=== PATIENT | male | born 1940 | race Caucasian/White ===

== ENCOUNTER 2019-11-09 22:28 | Inpatient (IN) ==
[2019-11-09 23:23] LABS: ALLEN TEST YES; BLOOD TYPE ARTERIAL; HCO3-(ACT) 23.9 mmoll (20.0-26.0); METHB 0.7 % (0.0-1.5); O2(CT) 14.6 mL/dL (15.0-23.0); PCO2(98.6) 28 mmHg (35-45); SAMPLE BLOOD; SAO2 87.4 % (95.0-100.0); THB 12.1 g/dL (11.5-17.4); pH(98.6) 7.49 (7.35-7.45)
[2019-11-09 23:28] LABS: MODALITY CANNULA; O2HB 85.7 % (95.0-99.0); PO2(98.6) 44 mmHg (60-100)
[2019-11-09] MEDS ORDERED: ZOFRAN IV ONE (23:40)
[2019-11-09] MEDS ORDERED: NS 1,000 ML IV ONE (23:40)
[2019-11-09 23:41] LABS: HEMATOCRIT 36.9 % (42.0-52.0); HEMOGLOBIN 12.1 g/dL (14.0-18.0); LYMPH# 0.22 X1000 (1.2-3.4); LYMPH% 12.9 % (20.5-51.1); MCH 29.7 PG (27-31); MCHC 32.8 g/dL (33-37); MCV 90.4 FL (81-99); MONO# 0.02 X1000 (0.11-0.59); MONO% 1.2 % (1.7-9.3); MPV 10.1 FL (7.4-10.4); NEUT# 1.46 X1000 (1.4-6.5); NEUT% 85.9 % (42.2-75.2); PLT 140 X1000 (130-400); RBC 4.08 XMIL (4.7-6.1); RDW 13.9 % (11.5-14.5)
[2019-11-09 23:48] LABS: AGAP 15; ALKALINE PHOSPHATASE 54 U/L (32-122); BUN 16 mg/dL (8-22); CALCIUM 8.2 mg/dL (8.8-10.2); CHLORIDE 98 mmol/L (98-107); CK PROFILE 34 U/L (24-204); COSMO 278; CREATININE 1.1 mg/dL (0.7-1.2); ESTIMATED GFR > 60; GLUCOSE 216 mg/dL (70-104); GOT 15 U/L (10-34); GPT 15 U/L (10-44); POTASSIUM 4.3 mmol/L (3.5-5.1); SODIUM 135 mmol/L (136-145); TCO2 22 mmol/L (25-35); TOTAL BILIRUBIN 1.06 mg/dL (0.20-1.00)
[2019-11-10 01:11] LABS: ALLEN TEST YES; BE -1.2 mmoll (-3.0-3.0); BLOOD TYPE ARTERIAL; HCO3-(ACT) 23.9 mmoll (20.0-26.0); METHB 0.4 % (0.0-1.5); MODALITY PRB; O2(CT) 14.3 mL/dL (15.0-23.0); O2HB 93.7 % (95.0-99.0); PCO2(98.6) 30 mmHg (35-45); PO2(98.6) 66 mmHg (60-100); SAMPLE BLOOD; SAO2 94.9 % (95.0-100.0); THB 10.8 g/dL (11.5-17.4); pH(98.6) 7.47 (7.35-7.45)
[2019-11-10] MEDS ORDERED: VANCOMYCIN 1 GM/NS 1 GM/250 ML IVPB IV ONE ×2 (01:39→01:44)
[2019-11-10] MEDS ORDERED: MAXIPIME 2 GM/NS 2 GM/100 ML IVPB IV ONE (01:43)
[2019-11-10] MEDS ORDERED: DUONEB (A & A) INH ONE ×2 (01:44→01:47)
[2019-11-10] MEDS ORDERED: NS 1,000 ML IV ONE (01:44)
[2019-11-10] MEDS ORDERED: SOLU-MEDROL IV ONE (01:45)
--- NOTE | 2019-11-10 01:50 | PROVIDER DOCUMENTATION ---
This chart was entered by Lizeth Kohler Scribe, acting as scribe for Reinier Domínguez MD. HPI-General Adult - General Chief Complaint: Nausea/Vomiting Stated Complaint: n/v Time Seen by Provider: 11/09/19 22:35 Source: patient, EMS Allergies/Adverse Reactions: Patient Allergies Allergy/AdvReac Type Severity Reaction Status Date / Time No Known Allergies Allergy Verified 09/21/19 10:34 Home Medications: Home Medication List Medication Instructions Recorded Confirmed Last Taken Type ATORVAstatin [Lipitor] 40 mg PO DAILY 09/19/19 09/21/19 09/20/19 History Clopidogrel Bisulfate [Plavix] 75 mg PO DAILY 09/19/19 09/21/19 09/17/19 History Hydrocodone/Acetaminophen [[place] 1 ea PO PRN PRN 09/19/19 09/21/19 09/20/19 History 5-325 Tablet] Metoprolol [Lopressor] 25 mg PO HS 09/19/19 09/21/19 09/20/19 21:00 History Polyethylene Glycol 3350 [Miralax] 17 gm PO DAILY 09/19/19 09/21/19 09/20/19 History - History of Present Illness -Gen Adult Nature of Presenting Problems: Patient is a 79 y/o male presenting to the ED today c/o nausea and dry heaving and malaise, no vomiting. Had sob today without chest pain. Patient is current undergoing chemotherapy and radiation treatment for lung cancer with bone metastasis. Patient was scheduled to have radiation today but was unable to due to machine malfunction. EMS reports upon arrival, patient's O2 sat was in the low 80s. EMS gave patient a nebulizer treatment and put him on a nonrebreather and his Sat improved to the upper 80s. Patient uses 3 L of O2 at home. Patient was in the ER 3 days ago and reports being given IV fluids for dehydration. Patient denies all other signs/symptoms. Patient takes Plavix. Patient reports he stopped smoking approximately 5-6 years ago. Associated Symptoms: reports: malaise, nausea, shortness of breath, vomiting Similar Symptoms Previously?: Yes Recently seen or treated by another doctor?: Yes (seen 11/05 in ER here for similar symptoms) Review of Systems - Adult - REVIEW OF SYSTEMS - ADULT Constitutional: denies: chills, fever Eyes: reports: no symptoms reported Ears, Nose, Mouth & Throat: reports: no symptoms reported Cardiovascular: denies: chest pain Respiratory: reports: shortness of breath. denies: cough Gastrointestinal: reports: nausea, vomiting. denies: abdominal pain, diarrhea Genitourinary: reports: no symptoms reported Musculoskeletal: reports: no symptoms reported Integumentary: reports: no symptoms reported Neurological: reports: no symptoms reported Psychiatric: reports: no symptoms reported Endocrine: reports: no symptoms reported Hematologic/Lymphatic: reports: no symptoms reported Allergic/Immunologic: reports: no symptoms reported All Other Systems: Reviewed and Negative Past History - Adult - PAST MEDICAL HISTORY-ADULT Review of Records: reports: Old Records Reviewed, Nursing Assessment Review, Medications Reviewed, Social history reviewed & non-contributory. Respiratory: reports: cancer Physical Exam-General - PHYSICAL EXAM-ADULT Initial Vital Signs Reviewed: Yes - CONSTITUTIONAL General Appearance: alert, moderate distress, thin - EYES Eyes: PERRL/EOMI, pink conjunctivae - HEAD, EARS, NOSE, MOUTH & THROAT HENMT: normocephalic/atraumatic, moist mucous membranes - NECK Neck: full range of motion, normal inspection - RESPIRATORY Respiratory: lungs clear, no accessory muscle use, respiratory distress, wheezing - CARDIOVASCULAR Cardiovascular: regular rate, rhythm, no edema - GASTROINTESTINAL (ABDOMEN) Abdominal Exam: non tender, soft - LYMPHATIC Lymphatic: no adenopathy - MUSCULOSKELETAL Back Exam: normal inspection Extremity: normal range of motion, normal gait, normal inspection, no pedal edema - SKIN Integumentary: normal color, normal turgor, warm/dry - NEUROLOGIC Neurologic: grossly normal, no motor/sensory deficits - PSYCHIATRIC Psych/Mental Status: normal mood/affect, normal thought content, normal thought process Progress - PLAN OF CARE/RESULTS Result Diagrams: 11/09/19 23:06 11/09/19 23:06 - REASSESSMENT Reassessment #1 Time Reassessed: 01:00 Status: improving (on non rebreather, sob improving. Patient is hypotensive , tarchycardic, still tachypneic) Reassessment #2 Time Reassessed: 01:30 Status: unchanged (No new sxs. receiving IVF. Discussed CT findings and the need for admission with pt and family. They agree with plan.) - CT/MRI 1 CT Study: Angiogram Impression: See EMR Report (No pulmonary emboli, bilateral lower lobe dense infiltrates, right > left, progressed vs. prior, chronic emphysematous and fibrotic disease, moderate right pleural effusion, progressed) - CONSULTS/PCP/HOSPITALIST Notification #1 *Consult/PCP/Hospitalist*: Dr. Oneal Time Discussed: 01:45 Consult Disposition: Admit (accepts admission) Departure - Departure Date of Disposition Decision: 11/10/19 Time of Disposition Decision: 01:40 DIAGNOSIS: SOB (shortness of breath), Pulmonary infiltrate, Pleural effusion Respiratory failure Qualifiers: Chronicity: acute Respiratory failure complication: hypoxia Qualified Code(s): J96.01 - Acute respiratory failure with hypoxia Disposition: ADMITTED INPATIENT 09 Certified Medical Emergency: Emergent Condition: Critical Referrals and Follow-Ups: None,PCP [Primary Care Provider] - - Critical Care Note This patient required my direct & personal management of CC.: Yes Total Time (mins): 35 Critical Care Statement: This patient required my direct personal management to treat or rule out processes, the absence of which, could potentiallly result in sudden, clinically significant life or limb threatening deterioration. Attestation - Physician/ MIGUEL Attestation Patient care was provided by Advanced Practice Provider:: No The physician spent face to face time with patient:: Yes Advanced Practice Provider documentation review:: Supervising physician onsite and consulted in the evaluation and care of this patient. The physician did have a face to face encounter with the patient. This chart was documented by the indicated scribe, (Lizeth Kohler Scribe) and accurately reflects the services I performed and decisions made by me, Reinier Domínguez MD, as attested by the provider's signature.
--- NOTE | 2019-11-10 02:38 | HISTORY AND PHYSICAL ---
PRIMARY CARE PROVIDER: Dr. Mckeon. REASON FOR ADMISSION: Two-day history of worsening shortness of breath. HISTORY OF PRESENT ILLNESS: Mr. Luis Felipe Owens is a 79-year-old white male with past medical history of lung cancer, status post right lobectomy. He is currently undergoing chemotherapy weekly and radiation therapy daily for the last several weeks. He comes in today complaining of worsening shortness of breath for the last 2 days, with simultaneous cough productive of greenish sputum. He denies any subjective fever or chills, but his states he is just feeling hot. The patient denies any chest pain or any anginal-type symptoms. He denies any hemoptysis, leg swelling or extremity redness or pain. The patient denies any contact with anybody with respiratory illnesses. He denies any GI or complaints except for constipation. He does admit that his appetite has been diminished and he has lost some weight subjectively. No genitourinary complaints. No focal neurological complaints. On arrival to the ER, on 4 L which he uses at home, his O2 saturations were in the low 80s. He is currently on 100% nonrebreather and O2 saturations are just in the low 90s. He says he feels better since using the 100% face mask. REVIEW OF SYSTEMS: Twelve-system review was done. Positive findings per HPI. ALLERGIES: No known allergies. MEDICATIONS: Home medications have not been officially reconciled, but it is mentioned that he is on Eliquis. PAST SURGICAL HISTORY: Notable for abdominal aortic aneurysm repair, right lobectomy. FAMILY HISTORY: The patient was adopted. SOCIAL HISTORY: He stopped smoking over 6 years ago. No alcohol use or drug use. , lives with . LABORATORY DATA: White count is 1700, hemoglobin and hematocrit 12 and 36, platelets 140,000, with 86% neutrophils. Sodium is 135, BUN 16, creatinine 1.1, glucose 212, calcium 8.2, total bilirubin 1. Troponin is 28. ProBNP 565. Lactate is pending. Blood gas, and this was on FiO2 of 70%: PH is 7.47, pCO2 is 30, pO2 is 66, O2 saturation is 93%. DIAGNOSTIC DATA: CTA was done and showed bilateral infiltrates in both lungs, left greater than right; also has evidence of COPD. PHYSICAL EXAMINATION: GENERAL: Chronically ill, emaciated, elderly white male who is in mild respiratory distress. VITAL SIGNS: He is slightly tachypneic at a rate of 24. His blood pressure on admission was initially 92/53, heart rate 117, temperature is 100.3 degrees. O2 saturation initially was 86% on 6 L. HEENT: Head is normocephalic, atraumatic. Eyes: SHELLY, EOMI. He is anicteric and mildly pale. ENT: Oropharynx exam is grossly normal. No central cyanosis noted. NECK: Supple. No JVD or carotid bruit. No thyromegaly. CHEST: Decreased air entry in both lung brantley with inspiratory wheezes on the right and possible basilar bronchial breath sounds on the right and left. CARDIOVASCULAR: First and second heart sounds are heard but distant. No murmurs appreciated. Rate is regular. ABDOMEN: Soft. No focal areas of tenderness. No mass or organomegaly appreciated. Bowel sounds are hypoactive. The patient has a ventral hernia which is reducible. RECTAL: Exam is deferred. EXTREMITIES: The patient has slightly diminished pulse volume but they are symmetrical and regular. No edema, clubbing or peripheral cyanosis. NEUROLOGIC: No gross focal deficits. No tremors. SKIN: Intact. No breakdown or erythema. MUSCULOSKELETAL: Exam is grossly normal. ASSESSMENT: 1. Sepsis. 2/2 pneumonia. 2. Bilateral pneumonia. 3. Chronic obstructive pulmonary disease. 4. Lung cancer. 5. Hypertension. 6. Hyperlipidemia. PLAN: The patient will be started on Maxipime to cover for pseudomonas, being that he has some degree of neutropenia. We will also expand coverage with vancomycin for gram- positive. We will also institute crystalloid support with normal saline. At this point in time lactate is pending, and further crystalloid administration will be determined by lactate levels. Blood cultures have been drawn and need to be followed. DuoNeb will be started and short course of steroids in the meantime. Medication reconciliation needs to be reviewed by rounding team. The patient does have hyperglycemia, and an A1c will be appropriate to rule out the possibility of underlying diabetes. Consult Dr. Marcelino for further input. If the patient is diabetic, we will recommend sliding scale. cc: MD Daniel Garza MD Naveen T. Lobo, MD [facility]PIT[facility]erry
[2019-11-10] MEDS ORDERED: VANCOMYCIN IV PER PHARMACY MISC SCH (04:14)
[2019-11-10] MEDS: NS 1,000 ML IV SCH ×3 (04:42→11:32)
[2019-11-10] MEDS ORDERED: VANCOMYCIN 500 MG in NS 150 ML IV ONE (05:00)
[2019-11-10] MEDS: DUONEB (A & A) INH SCH ×4 (05:18→22:45)
[2019-11-10 07:03] LABS: HEMOGLOBIN A1C 5.8 % (4.8-6.0)
--- NOTE | 2019-11-10 07:49 | Diag Imaging Result Doc PS360 ---
EXAM: CT ANGIOGRM PULMONARY ARTERIES 11/09/2019 HISTORY: dyspnea, hypoxia TECHNIQUE: This exam was performed using automated exposure control, adjustment of mA or kV according to patient size, and/or use of iterative reconstruction technique. COMMENT: 3-D MIPS were performed. The current study is compared with the examination of 08/20/2019. There are no filling defects in the pulmonary arteries. There are atherosclerotic changes in the thoracic aorta without evidence of dissection. The descending thoracic aorta is slightly distended to 3.5 cm which has not changed significantly since the previous study. There are bilateral pleural effusions with some suggestion of loculation on the right. The volume of fluid is slightly greater than on the previous study. There is somewhat enlarged precarinal node which measures up to 2.2 cm in long axis. This has probably not changed significantly since the previous study. The regional skeleton is stable in appearance. There are multiple cysts in the kidneys. The gallbladder is somewhat distended. There are no apparent stones. There is severe COPD. There is opacification of both lower lobes particularly the right lower lobe. This is much worse than on the previous study. There is also some opacification of the dependent portion of the lingula which is also worse than on the previous study. IMPRESSION: Pulmonary edema and/or pneumonia with worsened right pleural effusion. No evidence of pulmonary emboli. Electronically signed by Fredy Nicholson 11/10/2019 7:47 AM
[2019-11-10] MEDS: PREDNISONE PO SCH (08:02)
[2019-11-10 11:32] LABS: URINE SOURCE CLEAN CATCH
[2019-11-10 11:46] LABS: BILIRUBIN URINE NEGATIVE (NEGATIVE); BLOOD URINE TRACE (NEGATIVE); COLOR YELLOW; GLUCOSE URINE TRACE mg/dL (NEGATIVE); KETONE URINE NEGATIVE (NEGATIVE); LEUKOCYTES URINE NEGATIVE (NEGATIVE); NITRITE URINE NEGATIVE (NEGATIVE); PH URINE 6.5; PROTEIN URINE TRACE mg/dL (NEGATIVE); TURBIDITY URINE CLEAR (CLEAR); UR EPITHELIAL CELLS <10 /HPF (<10); URINE BACTERIA NEGATIVE /HPF; URINE RBC <10 /HPF (<10); URINE WBC <10 /HPF (<10); UROBILINOGEN URINE NORMAL (NORMAL)
--- NOTE | 2019-11-10 13:31 | PROGRESS NOTE ---
DATE: 11/10/2019 SUBJECTIVE: Patient admitted this morning with dyspnea, fever and acute on chronic hypoxic respiratory failure. Patient is on 4 L of oxygen at home although he does not always wear it continuously. On admission, he was at 86% on 6 L. Bilateral pneumonia was identified as well as worsened right pleural effusion. No pulmonary embolus was identified on CTA. The patient's lactate was elevated and actually trended up slightly so he was given additional fluid bolus and lactate now trending down. Perfusion appears to be adequate on reassessment. Symptomatically, patient is doing much better. OBJECTIVE: Appears comfortable. No increased work of breathing or accessory muscle use. breath sounds decreased at both bases with some rales and rhonchi R>L. no wheezing. ASSESSMENT/PLAN: We will continue antibiotics with vancomycin and cefepime. DuoNebs as needed. We will continue fluids for now given improvement in lactate, but we will have to exercise some care see appears to have some level of chronic diastolic congestive heart failure. Also, mildly neutropenic in the setting of known lung cancer, which will also require attention. Some mild hyponatremia that does not appear to be a significant issue, but will monitor his labs. If his pleural effusion does not resolve rapidly with treatment of his pneumonia, then he is likely to require thoracentesis in the near future. Monitor closely and will adjust further as needed. [facility]ENT[facility]erry
[2019-11-10] MEDS: MAXIPIME 2 GM/NS 2 GM/100 ML IVPB IV SCH (15:37)
[2019-11-10] MEDS: ZOFRAN IV PRN (15:37)
[2019-11-10] MEDS: NORCO-7.5 PO PRN (15:38)
--- NOTE | 2019-11-10 21:06 | HEMO/ONC CONSULTATION ---
DATE: 11/10/2019 REASON FOR CONSULTATION: This is a known patient of ours for the treatment of lung cancer with metastasis to the bone. HISTORY OF PRESENT ILLNESS: Mr. Owens is a 79-year-old male who came to the ER last night with complaints of shortness of breath, nausea and extreme weakness. He denies any fever. He does state that he has a productive cough. He denies any chest pain or hemoptysis. He states his appetite has been diminished and he has lost some weight. On arrival to the ER the patient was found to have O2 saturations in the low 80s while he was on his home oxygen. He was placed on 100% nonrebreather and his O2 saturation kenzie to the low 90s. He feels more comfortable since using the 100% face mask. 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 On 10/15/2019 the patient started treatment with carboplatin, Abraxane and Keytruda. His last treatment was on 11/05/2019. The patient is also on Xgeva. His last dose was on 10/22/2019. PAST MEDICAL HISTORY: Atrial fibrillation, CAD, hypertension, hypercholesterolemia and PUD. PAST SURGICAL HISTORY: Stent placement, aortic repair and right lobectomy. SOCIAL HISTORY: Former smoker the patient stop smoking over 6 years ago. He denies alcohol or illicit drug use. ALLERGIES: No known drug allergies. HOME MEDICATIONS: Lipitor, Plavix, Toprol-XL and Zofran. REVIEW OF SYSTEMS: The patient complains of shortness of breath and productive cough as of this morning. All other review of systems are negative. VITAL SIGNS: Temperature 97.1 degrees, pulse rate 103, respiratory rate 22, blood pressure 100/60, O2 saturation 99% on nonrebreather. The patient is in 0/10 pain. PHYSICAL EXAMINATION: General: This is an elderly chronically ill-appearing gentleman in no acute distress. HEENT: Sclerae anicteric. PERRLA. Oral mucosa is normal. Cardiovascular: Normal S1, S2. Heart rate and rhythm tachycardic. Respiratory: Diminished breath sounds throughout, inspiratory wheezes noted on the right. Normal respiratory effort. Patient continuing to wear nonrebreather. Abdomen: Soft, nontender, nondistended. No hepatosplenomegaly. Extremities: No lower extremity edema noted. Neurological: Alert and oriented x3. Hard of hearing. Lymphatic: No lymphadenopathy noted. LABORATORY: No labs were drawn today. ASSESSMENT AND PLAN: 1. Sepsis due to bilateral pneumonia. Continue to treat the patient per medical management with antibiotics and respiratory therapy. 2. Chronic obstructive pulmonary disease. Continue same. 3. Metastatic lung cancer with metastasis to the bone. Patient is currently being treated with carboplatin, Abraxane and Keytruda, therapy will be on hold while patient is in the hospital. We will continue to monitor. 4. Deep venous thrombosis prophylaxis. The patient should have on mechanical devices or SCDs. He does not appear to be on any anticoagulation. The patient should be out of bed 3 times a day. 5. Nutrition. Continue to support the patient with protein shakes and encourage eating. Dictated by AYLIN Pearl for Lorenzo Marcelino MD Metastatic lung adenocarcinoma on chemo/immunotherapy. Admitted with pneumonia/sepsis. Management per medical team. Consider DVT prophylaxis. Continue current management. Lorenzo Marcelino MD cc: Lorenzo Marcelino MD MTD
[2019-11-11] MEDS: MAXIPIME 2 GM/NS 2 GM/100 ML IVPB IV SCH ×2 (03:49→13:56)
[2019-11-11] MEDS: DUONEB (A & A) INH SCH ×4 (03:50→23:45)
[2019-11-11 06:44] LABS: EOS# 0.01 X1000 (0.0-0.7); EOS% 0.5 % (0.0-10.0); HEMATOCRIT 27.3 % (42.0-52.0); HEMOGLOBIN 8.9 g/dL (14.0-18.0); IMM GRAN# 0.24 X1000 (0.0-0.04); IMM GRAN% 11.6 % (0.0-0.5); LYMPH# 0.18 X1000 (1.2-3.4); LYMPH% 8.7 % (20.5-51.1); MCH 29.8 PG (27-31); MCHC 32.6 g/dL (33-37); MCV 91.3 FL (81-99); MONO# 0.07 X1000 (0.11-0.59); MONO% 3.4 % (1.7-9.3); MPV 9.8 FL (7.4-10.4); NEUT# 1.57 X1000 (1.4-6.5); NEUT% 75.8 % (42.2-75.2); PLT 96 X1000 (130-400); RBC 2.99 XMIL (4.7-6.1); RDW 14.1 % (11.5-14.5); WBC 2.07 X1000 (4.8-10.8)
--- NOTE | 2019-11-11 07:19 | Diag Imaging Result Doc PS360 ---
EXAM: CHEST-PORTABLE 11/11/2019 HISTORY: pneumonia, hypoxia TECHNIQUE: AP portable at 0611 COMMENT: There is worsened interstitial and alveolar opacity in the lung bases compared to 09/21/2019, however there is also not as optimal inspiration. IMPRESSION: Worsened pulmonary edema and/or pneumonia. Electronically signed by Fredy Nicholson 11/11/2019 7:17 AM
[2019-11-11 07:23] LABS: LYMPHS 12 % (21-51); MONO 4 % (1-9); SEGS 72 % (42-75)
[2019-11-11 07:31] LABS: AGAP 10; ALB/GLOB RATIO 0.8; ALBUMIN 2.2 g/dL (3.5-5.0); ALKALINE PHOSPHATASE 44 U/L (32-122); BUN 12 mg/dL (8-22); CALCIUM 7.2 mg/dL (8.8-10.2); CHLORIDE 105 mmol/L (98-107); COSMO 276; CREATININE 0.8 mg/dL (0.7-1.2); ESTIMATED GFR > 60; GLUCOSE 105 mg/dL (70-104); GOT 11 U/L (10-34); GPT 10 U/L (10-44); SODIUM 138 mmol/L (136-145); TCO2 23 mmol/L (25-35); TOTAL PROTEIN 4.9 g/dL (6.3-8.3)
[2019-11-11 09:41] LABS: INR 1.4; PROTIME 17.4 Seconds (11.0-16.0)
[2019-11-11] MEDS: LIPITOR PO SCH (09:48)
[2019-11-11] MEDS: PREDNISONE PO SCH (09:48)
[2019-11-11] MEDS: VANCOMYCIN 1,250 MG in NS 250 ML IV SCH (10:40)
[2019-11-11 13:34] LABS: HEMATOCRIT 26.8 % (42.0-52.0); HEMOGLOBIN 8.6 g/dL (14.0-18.0)
--- NOTE | 2019-11-11 15:29 | PROGRESS NOTE ---
DATE: 11/11/2019 INTERVAL HISTORY: Patient with some symptomatic improvement in dyspnea. Oxygenation looks to be excellent, although he remains on a nonrebreather. Given drop in hemoglobin I asked patient about any signs or symptoms of bleeding which he denied. He has not had a bowel movement over the last day but denies any recent hematochezia or melena. He has had no hemoptysis or hematemesis. He has no new swelling, no abdominal pain. No new complaints. No acute events overnight. REVIEW OF SYSTEMS: Twelve point review of systems negative except as per interval history. LABS: WBC 2.0, hemoglobin 8.9, repeat 8.6, hematocrit 27.3, platelets 96,000. INR 1.4. Sodium 138, potassium 4, BUN 12, creatinine 0.8, glucose 105. IMAGING: Chest x-ray with pulmonary edema and likely pneumonia which is worsened from previous x- ray a couple months ago but appears roughly similar to what was seen on CTA of the chest yesterday. VITALS: T-max 98.7 degrees, pulse 100, respirations 18, blood pressure 114/58, O2 saturation 99% on a nonrebreather . PHYSICAL EXAMINATION: General: No acute distress. Vitals as above. Chronically ill-appearing. HEENT: Normocephalic, atraumatic. Fairly moist mucous membranes. No cervical adenopathy. Mild JVD noted. Cardiovascular: Regular rate and rhythm currently. Port noted on left upper chest. Pulmonary: Rales noted in the mid to lower lungs bilaterally. No wheezing. Pretty good air entry. Extremities: peripheral pulses decreased but present. No lower extremity edema noted. Abdomen: Soft, nontender, nondistended. Bowel sounds positive. Neurologic: Cranial nerves grossly intact. Mild global weakness but no focal deficits identified. Psychiatric: Normal mood and affect, awake, cooperative. ASSESSMENT AND PLAN: 1. Acute on chronic hypoxemic respiratory failure. Multifactorial as below with severe underlying chronic obstructive pulmonary disease likely pneumonia and chronic diastolic congestive heart failure and right pleural effusion. CTA obtained initially showed likely pneumonia and right pleural effusion but no evidence of PTE. Placed on nonrebreather initially with saturations in the low 90s. Improved this morning up to 98, 99 most of the morning so saturations actually look a little bit better. Chest x-ray is read as worsened pulmonary edema or pneumonia but the comparison is to a chest x-ray from a couple months ago not to CTA performed yesterday. Looking at his infiltrates on the CTA and comparing to the chest x-ray looks roughly similar. BNP only mildly elevated at 565 and echocardiogram approximately 6 months ago showed normal ejection fraction of 60-65 with some mild diastolic dysfunction so I strongly favor pneumonia on top of underlying chronic obstructive pulmonary disease rather than congestive heart failure exacerbation. Will get limited echocardiogram just to make sure his EF has not changed. Patient symptomatically is quite a bit improved and oxygen a little bit better so will continue current therapy with cefepime and vancomycin for pneumonia. Continue DuoNebs. No wheezing currently so no real suspicion for chronic obstructive pulmonary disease exacerbation but will continue low-dose steroid that he is already on. Will monitor chest x-rays and if effusion looks to be increasing then he may need a thoracentesis in the near future. 2. Pneumonia likely the primary cause of his hypoxia on antibiotics with vancomycin and cefepime as above. 3. Severe underlying chronic obstructive pulmonary disease. Patient on 3 L of oxygen at home because of his chronic obstructive pulmonary disease but no wheezing and pretty good air entry so I do not suspect exacerbation at this time. 4. Lung cancer. Patient on treatment with Dr. Marcelino. 5. Neutropenia. Patient was mild neutropenia on admission actually improved a little bit today. He is just barely out of the neutropenic range at this point. Will continue to monitor. 6. Anemia and thrombocytopenia. Pretty significant drop in hemoglobin today from 12.1 to 8.9 but repeat this afternoon essentially unchanged at 8.6. No signs or symptoms of bleeding so suspect this is cancer/chemo related but will continue to monitor blood counts and consider further evaluation if this changes. INR within normal limits and bilirubin actually improved so appears unlikely to be hemolyzing. 7. Hyponatremia improved. Continue to monitor labs. 8. Elevated lactic acidosis improved with initial hydration. Given effusion and underlying diastolic heart failure I am reluctant to give him more fluids at this time. As lactic acidosis was trending down on last check and blood pressure is somewhat improved from admission we will give neither fluids nor diuretics at this time and continue monitoring. EVANGELINA
[2019-11-11] MEDS ORDERED: VANCOMYCIN 1,250 MG in NS 250 ML IV SCH (17:00)
--- NOTE | 2019-11-11 17:12 | ECHO REPORT ---
ORDER DATE: 11/11/2019 STUDY PERFORMED: 2D echocardiogram. REASON FOR STUDY: This is a limited 2D echocardiogram to evaluate left ventricular systolic function. ECHOCARDIOGRAPHIC MEASUREMENTS: 1. Interventricular septum 1.0. Left ventricular posterior wall 1.0. Diastolic diameter 3.9 cm. 2. Normal left ventricular cavity size. Estimated ejection fraction of 65%. 3. Mitral valve was normal. 4. Aortic valve was normal. 5. Tricuspid valve not well visualized. 6. Doppler studies were not obtained. This was to evaluate left ventricular systolic function. Normal right ventricular cavity size and function. 7. Anterior echo-free space suggestive of pericardial fat pad noted. There is no pericardial effusion. cc: Trenton Conway MD
[2019-11-12] MEDS: MAXIPIME 2 GM/NS 2 GM/100 ML IVPB IV SCH ×2 (01:51→15:43)
[2019-11-12] MEDS: DUONEB (A & A) INH SCH ×4 (04:05→22:25)
[2019-11-12 06:00] LABS: BASO# 0.01 X1000 (0.0-0.2); BASO% 0.3 % (0.0-0.8); HEMOGLOBIN 8.8 g/dL (14.0-18.0); LYMPH# 0.31 X1000 (1.2-3.4); LYMPH% 7.8 % (20.5-51.1); MCH 29.5 PG (27-31); MCHC 32.6 g/dL (33-37); MCV 90.6 FL (81-99); MONO# 0.22 X1000 (0.11-0.59); MONO% 5.6 % (1.7-9.3); MPV 9.4 FL (7.4-10.4); NEUT# 3.42 X1000 (1.4-6.5); NEUT% 86.3 % (42.2-75.2); PLT 105 X1000 (130-400); RBC 2.98 XMIL (4.7-6.1); RDW 13.9 % (11.5-14.5); WBC 3.96 X1000 (4.8-10.8)
[2019-11-12 06:20] LABS: AGAP 11; BUN 9 mg/dL (8-22); CALCIUM 7.6 mg/dL (8.8-10.2); CHLORIDE 103 mmol/L (98-107); COSMO 273; CREATININE 0.8 mg/dL (0.7-1.2); ESTIMATED GFR > 60; GLUCOSE 115 mg/dL (70-104); MAGNESIUM 2.1 mg/dL (1.5-2.7); POTASSIUM 3.9 mmol/L (3.5-5.1); SODIUM 137 mmol/L (136-145); TCO2 23 mmol/L (25-35)
--- NOTE | 2019-11-12 07:41 | Diag Imaging Result Doc PS360 ---
EXAM: CHEST-PORTABLE INDICATION: copd, effusions, pneumonia, hx of lung cancer TECHNIQUE: One view COMPARISON: 11/11/2019 FINDINGS: The left chest port is in stable position. Airspace consolidations at both lower lung zones are again identified and are essentially stable given slight differences in positioning. There is probably a small effusion on the right that is unchanged. No new consolidation is identified. Cardiac silhouette is stable. IMPRESSION: Essentially stable chest. Electronically signed by Vlad More 11/12/2019 7:39 AM
[2019-11-12] MEDS: LIPITOR PO SCH (08:32)
[2019-11-12] MEDS: PREDNISONE PO SCH (08:32)
[2019-11-12] MEDS: VANCOMYCIN 1,250 MG in NS 250 ML IV SCH (10:31)
[2019-11-12] MEDS ORDERED: SOLU-MEDROL IV SCH (11:15)
--- NOTE | 2019-11-12 12:25 | PROGRESS NOTE ---
DATE: 11/12/2019 SUBJECTIVE: This morning Mr. Owens refers to be doing fair. He continues to have shortness of breath. He is saturating about 93% on 4 L. OBJECTIVE: General: Mr. Owens is a 79-year-old elderly male. He is in bed. He is on supplemental oxygen. He seems to be in mild respiratory distress. HEENT: Mucosa is pink and moist. Anicteric. Acyanotic. Neck: Supple. No JVD. Respiratory System: Air entry is bilaterally reduced, more so to the right posterior lung field. There is a prolonged expiratory phase of respiration. There is also some faint wheezing bilaterally. There is an old scars on the right posterior chest from the previous lung surgery. GI: Abdomen soft, minimally distended in the lower abdomen. There is a large horizontal midline surgical scar from previous aneurysm repair. There is a small incisional hernia defect noted. Extremities: No pedal edema. TERMITE CONTROL TECHNICIAN: TERMITE CONTROL TECHNICIAN patient is awake, alert, oriented. His kind of hard of hearing. . LABORATORY DATA: Reviewed. WBC is up to 3.96, hemoglobin is 8.8, platelet count of 105,000. Chemistry is reviewed. No changes. Pro B is 2278. So far, blood cultures have been 48 hours negative. Imaging studies: Chest x-ray shows stable. The patient I's and O's: Urine output was 1475, currently negative balance of 865. ASSESSMENT: 1. Acute on chronic hypoxemic respiratory failure. The reason could be because of pneumonia and pulmonary edema, possible radiation pneumonitis and chronic obstructive pulmonary disease exacerbation. 2. Bilateral lower lobe pneumonia. 3. Severe chronic obstructive pulmonary disease with moderate to severe exacerbation on admission. 4. 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 5. Sepsis with elevated lactic acid level on admission. 6. Hypertension controlled. 7. Neutropenia, improving. 8. Possible diastolic heart failure. Pro B has slightly been elevated. Ejection fraction is normal. PLAN: So in general Mr. Ochoa is an elderly gentleman with history of metastatic squamous cell lung cancer to the bone. He is status post right partial lobectomy and has been started on chemotherapy and radiation. He is also has severe COPD on home 2 oxygen. He presented because of shortness of breath, sputum production, has been found to have bilateral pneumonia and he is on antimicrobial coverage. He is also on steroid. We have changed to IV because of some nauseation. We are going to continue with his current medications. We will consult Pulmonary Medicine also to see him. I suspect the patient has also underlying radiation pneumonitis on top of all the other disease process is going on in his lungs. cc: Miky Redmond MD
[2019-11-12] MEDS: SOLU-MEDROL IV SCH (16:52)
--- NOTE | 2019-11-12 17:10 | PULMONOLOGY CONSULTATION ---
DATE: 11/12/2019 REQUESTING PROVIDER: Dr. Miky Arceo REASON FOR CONSULTATION: Severe COPD, suspected radiation pneumonitis. HISTORY OF PRESENT ILLNESS: This is a 79-year-old male with a medical history of lung cancer metastatic to bone, atrial fibrillation, coronary artery disease, hypertension, hypocholesterolemia, and peptic ulcer disease. He apparently underwent chemotherapy last Tuesday in Dr. Marcelino's office. Later, he went home and had a fall. He presented to the ER last Tuesday and was given a bolus of IV fluids for dehydration. Then he was sent home. Last Tuesday he went to see Dr. Marcelino and later he developed low-grade fever with nausea, dry heaving and malaise. He presented to the ER on Tuesday. He was found desaturated on nasal cannula at [address] angiogram pulmonary arteries in the ER revealed pulmonary edema and old pneumonia with worsened right pleural effusion and no evidence of pleural emboli. Initial ABG showed PO2 44 on nasal cannula at 6 L. The patient also had mildly elevated troponin T, proBNP and plasma lactate. He was admitted to the [facility] with pneumonia and possible sepsis. He has been on a schedule DuoNeb, Solu-Medrol 40 mg q 8 hour and antibiotics including cefepime in and vancomycin. The patient currently is lying in bed with no acute distress noted. He is on nasal cannula at 3 L with oxygen saturation at low 90s. He states he is feeling a lot better. He has no chest pain, palpitation, bowel habit change, urination discomfort, pedal edema, wheezing, or orthopnea. He does has poor appetite with poor oral intake, recent weight loss, occasional productive cough with thick greenish phlegm, severe shortness of breath with any activities initially, which has been improved slightly. PAST MEDICAL HISTORY: 1. Right lung cancer metastatic to bone in L2. He had a poor placed on 09/21/[address] Sanchez. Since then undergoing chemotherapy by Dr. Marcelino and radiation therapy by Dr. Friedman for the last several weeks. The last chemotherapy was on last Tuesday. The patient also status post right lobectomy. 2. Atrial fibrillation. 3. Coronary artery disease. 4. Hypertension. 5. Hypercholesterolemia. 6. Peptic ulcer disease. 7. History of tobacco use, quit 6 years ago. PAST SURGICAL HISTORY: 1. Stent placement. 2. Aortic repair. 3. Right lobectomy. 4. Port-A-Cath placement. SOCIAL HISTORY: The patient is and lives at home with his family. He is a former smoker and quit smoking 6 years ago. He used to be a light smoker and started smoking at age of 11. His apparently is a heavy smoker and they smoke around each other, so he also have a history of heavy secondhand smoking exposure. He has no history of alcohol or illicit drug use. FAMILY HISTORY: Unknown as patient was adopted. ALLERGIES: No known drug allergies. REVIEW OF SYSTEMS: A 10-point review of systems was conducted and the pertinent is listed within the HPI, otherwise noncontributory. PHYSICAL EXAMINATION: Vital Signs: Temperature 98.1 degrees, blood pressure 118/65, pulse 100, respiratory rate 21, oxygen saturation 93% on nasal cannula at 3 L. General: Chronically ill- appearing, lying in bed, no acute distress noted. HEENT: Atraumatic, normocephalic. Trachea midline. Mucosa pink and moist. Pupils: Equal, round, reactive to light. Respiratory: Even and unlabored. Symmetrical excursion. Auscultation reveals decreased air entry globally with inspiratory wheezing on the right. Cardiovascular: Regular rate and rhythm with S1 and S2 appreciated. Gastrointestinal: Soft nontender, nondistended, normoactive bowel sounds in all 4 quadrants. Extremities: No pedal edema. No cyanosis. No clubbing. Dorsalis pedis diminished bilaterally. Neurologic: Alert and oriented x3. Speech fluent. Follows commands. Difficulty hearing noted. Weakness present. LAB DATA: White blood cells 3.96, hemoglobin 8.8, hematocrit 27.0, platelets 105,000. Sodium 137, potassium 3.9, chloride 103, carbon dioxide 23, BUN 9, creatinine 0.8, glucose 115. ProBNP 2,278. IMAGING DATA: Chest x-ray this morning showed essentially stable chest with airspace consolidations at both lower lung zones, possible small effusion on the right. ASSESSMENT: This is a 79-year-old male with a medical history of right lung cancer metastatic to bone status post right lobectomy with ongoing chemotherapy and radiation therapy, atrial fibrillation, coronary artery disease, hypertension, hypocholesterolemia and peptic ulcer disease and history of tobacco use. He has been admitted since 11/10/2019 with acute on chronic hypoxemic respiratory failure, pneumonia, COPD exacerbation, and signs and symptoms of sepsis. 1. Acute on chronic hypoxemic respiratory failure, improved. Since admission patient has been on non-rebreather for 2 days. He has been switched on nasal cannula since last night and current oxygen flow rate is 3 L with oxygen saturation in the low 90s. 2. Pulmonary edema and/or pneumonia with right pleural effusion, rule out pulmonary emboli. 3. Severe chronic obstructive pulmonary disease with [id number] exacerbation on admission. 4. Squamous cell cancer of the right lung, metastatic to bones, status post right lobectomy with ongoing chemotherapy and radiation therapy. 5. Pancytopenia. 6. Continue elevated proBNP. PLAN: 1. Continue supplemental oxygen as needed. We titrated supplemental oxygen to the patient's needs per clinical protocols. We will monitor patient's response closely. 2. Antibiotics including cefepime on day 3 and vancomycin on day 2. 3. Duo nebs scheduled q.6 hour and IV Solu Medrol 40 mg q.4 hours ordered. The patient initially was on oral prednisone 40 mg daily, which has been discontinued today and IV Solu Medrol started. 4. We will follow up CBC, BMP, and sputum culture. We will check ABG and chest x-ray if indicated. 5. Further recommendations pending hospital course. Thank you for the courtesy of this consult. Dr. Davila did the examination, evaluation, management, and orders. AYLIN did dictation for Dr. Davila according to his direction. Total evaluation time in minutes: 34. Dictated by AYLIN Frey for Clint Davila MD cc: AYLIN Frey MD [facility]
--- NOTE | 2019-11-12 17:12 | HEMO/ONC PROGRESS NOTE ---
DATE: 11/12/2019 SUBJECTIVE: Mr. Owens refers to be feeling about the same today. He continues to be in some respiratory distress, mild dyspnea. He denied any significant events overnight. VITAL SIGNS: Temperature 98.0 degrees, pulse rate 91, respiratory rate 18, blood pressure 123/66, O2 saturation 97% on nasal cannula at 4 L. He is in 0/10 pain. PHYSICAL EXAMINATION: General: Chronically ill-appearing, elderly male in mild distress. HEENT: Sclera is anicteric. Oral mucosa is normal. PERRLA. Cardiovascular: Normal S1, S2. Heart rate and rhythm tachycardic. Respiratory: Lung sounds are diminished. Some wheezing noted. Gastrointestinal: Abdomen is soft, nontender. Extremities: No lower extremity edema noted. Neurological: Alert and oriented x3. Patient is hard of hearing. LABORATORY: WBC 3.96, hemoglobin 8.8, hematocrit 27, platelet count 105,000. Calcium 7.6. ProBNP 2,278. Plasma lactate 1.9. ASSESSMENT AND PLAN: 1. Sepsis with elevated lactic acid on admission, most likely due to bilateral lobe pneumonia. Patient's lactate is normal today. Continue medications per medical management and supportive care. 2. Acute on chronic hypoxemic failure. This could be in part due to pneumonia or his COPD. Continue to treat the patient per medical management. 3. Metastatic lung cancer with metastasis to the bone. The patient is currently being treated with carboplatin, Abraxane, and Keytruda. Therapy is temporarily on hold. We will continue to monitor. 4. Deep venous thrombosis prophylaxis. Consider DVT prophylaxis for this patient. He is at higher risk for DVT due to malignancy and immobilization. He should also be getting out of bed at least 3 times a day. 5. Nutrition. The patient will need protein shakes with each meal. He needs to be encouraged to eat. Consider an appetite stimulant if his appetite is poor. Dictated by AYLIN Pearl for Lorenzo Currie MD Patient seen and examined. As above. SOB is due to COPD/pneumonia. Radiation pneumonitis usually is a little later in the course. If strong suspicion of radiation pneumonitis, please consult Dr. Friedman for input. Pulmonary on board. Continue current management. Lorenzo currie MD cc: Lorenzo Currie MD [facility]
[2019-11-12] MEDS: NORCO-7.5 PO PRN (19:05)
[2019-11-13] MEDS: SOLU-MEDROL IV SCH ×3 (02:12→16:06)
[2019-11-13] MEDS: MAXIPIME 2 GM/NS 2 GM/100 ML IVPB IV SCH ×2 (02:12→16:05)
[2019-11-13] MEDS: DUONEB (A & A) INH SCH ×4 (03:55→23:10)
[2019-11-13 05:49] LABS: BASO# 0.01 X1000 (0.0-0.2); BASO% 0.3 % (0.0-0.8); HEMATOCRIT 28.9 % (42.0-52.0); HEMOGLOBIN 9.3 g/dL (14.0-18.0); IMM GRAN# 0.02 X1000 (0.0-0.04); IMM GRAN% 0.7 % (0.0-0.5); LYMPH# 0.23 X1000 (1.2-3.4); LYMPH% 7.5 % (20.5-51.1); MCH 29.2 PG (27-31); MCHC 32.2 g/dL (33-37); MCV 90.6 FL (81-99); MONO# 0.28 X1000 (0.11-0.59); MONO% 9.1 % (1.7-9.3); MPV 9.8 FL (7.4-10.4); NEUT# 2.53 X1000 (1.4-6.5); NEUT% 82.4 % (42.2-75.2); PLT 110 X1000 (130-400); RBC 3.19 XMIL (4.7-6.1); RDW 14.1 % (11.5-14.5); WBC 3.07 X1000 (4.8-10.8)
[2019-11-13 06:47] LABS: AGAP 10; BUN 9 mg/dL (8-22); CALCIUM 8.1 mg/dL (8.8-10.2); CHLORIDE 107 mmol/L (98-107); COSMO 285; CREATININE 0.6 mg/dL (0.7-1.2); ESTIMATED GFR > 60; GLUCOSE 148 mg/dL (70-104); POTASSIUM 4.5 mmol/L (3.5-5.1); SODIUM 142 mmol/L (136-145); TCO2 25 mmol/L (25-35)
[2019-11-13] MEDS: LIPITOR PO SCH (08:28)
[2019-11-13] MEDS: VANCOMYCIN 1,500 MG in NS 250 ML IV SCH (12:04)
--- NOTE | 2019-11-13 16:54 | PROGRESS NOTE ---
DATE: 11/13/2019 SUBJECTIVE: He is a patient of Dr. Mckeon. This is a 79-year-old with 2-day history of worsening shortness of breath presenting on 11/10/2019. Past medical history of lung cancer status post right lobectomy, currently undergoing chemotherapy weekly, radiation therapy daily for several weeks. He came in complaining of worsening shortness of breath for the last 2 days and simultaneous cough with productive greenish sputum. Denied any subjective fever, chills, but his states that he was feeling hot. The patient denies any chest pain or anginal type pain. Denied any hemoptysis, leg swelling, or extremity redness. Denied any contact with anybody with respiratory illness. His admission diagnosis was sepsis with bilateral pneumonia, chronic underlying chronic obstructive pulmonary disease exacerbation of COPD, underlying lung cancer, hypertension, hyperlipidemia. He reports that he is breathing better and feeling better today. PHYSICAL EXAMINATION: Vital Signs: His temperature is 98.1 degrees, pulse 104, respirations 19, blood pressure 107/63. HEENT: Pupils are equal and round. Lungs: Clear anterolateral. Cardiovascular: Regular rate without murmur or S3. Abdomen: Soft. Skin: Warm and dry. Urine output is 5200 mL. ASSESSMENT AND PLAN: 1. Sepsis with elevated lactate level on admission, likely due to bilateral lower lobe pneumonia. His lactate has normalized. Continue his current antibiotics and pulmonary care. 2. Acute on chronic hypoxemic failure in part due to pneumonia and exacerbation of chronic obstructive pulmonary disease. 3. Metastatic lung cancer with metastasis to his bone. Pain currently being treated with carboplatin, Abraxane and Keytruda. Therapy is temporarily on hold. 4. Deep venous thrombosis prophylaxis. He is a high risk for DVT because of his malignancy. He is also to get out of bed about 3 times a day to help. 5. Nutrition. Continue protein shakes with each meal. Encourage p.o. intake. 6. Hypertension, controlled. 7. Neutropenia, improving. 8. Possibility of diastolic heart failure. ProBNP was slightly elevated. Ejection fraction is normal. We have changed to IV nausea medication. Continue current medication. Pulmonary Medicine is involved. 9. Review of his orders; he is on DuoNeb q.6 hours. He has Lipitor 40 mg daily, hydrocodone 7.5 mg as needed, cefepime 2 g IV q.12, methylprednisone 40 mg IV q.8, vancomycin 1500 mg IV q.24 hours. LABORATORY DATA: Today; white count 3070, hematocrit is 28, hemoglobin 9.3, platelet count 110,000. Chemistry; sodium 142, potassium 4.5, chloride 107, bicarb 25, BUN 9, creatinine 0.6. Blood sugars; last three were 105, 115 and 148. ProBNP is down a little bit to 1752. Lactate level is 1.9. His ProTime was 17, INR 1.4. cc: Jose Martin Galo MD
--- NOTE | 2019-11-13 18:46 | PROVIDER PROGRESS NOTE ---
Progress Note Dr. Davila Progress Note/Pulmonary and or critical care Subjective: The patient is lying in bed on VM 50%. He states he is feeling ok. He does have constant dry cough during my encounter. at the bedside reports constant cough with light garcia thick phlegm at times. Input was appreciated from Dr. Galo and other teams on the case. Objective: Vital Signs: 98.2 (no fever in last 24 hours), SD 78, RR 16, BP 118/60 and SaO2 98% on VM 50%. Physical Examination: General: No acute distress noted. HEENT: Normocephalic. Trachea midline. Chest: Even and unlabored. No increased work of breathing. Symmetrical excursion. Diminished breathing sounds bilaterally, worse in the right side with occasional bronchi bilaterally. CVS: S1 and S2 appreciated. Abdomen: Soft. Non-distended. Obese. Normoactive bowel sounds noted. Extremities: No edema. No cyanosis. No clubbing. Neuro: Sleeping. Labs and Radiology: Laboratory Results 11/13/19 11/13/19 11/13/19 05:25 05:25 05:25 WBC 3.07 L RBC 3.19 L Hgb 9.3 L Hct 28.9 L MCV 90.6 MCH 29.2 MCHC 32.2 L RDW Std Deviation 14.1 Plt Count 110 L MPV 9.8 Immature Gran % (Auto) 0.7 H Neut % (Auto) 82.4 H Lymph % (Auto) 7.5 L Gilliam % (Auto) 9.1 Eos % (Auto) 0.0 Baso % (Auto) 0.3 Immature Gran # (Auto) 0.02 Neut # (Auto) 2.53 Lymph # (Auto) 0.23 L Gilliam # (Auto) 0.28 Eos # (Auto) 0.00 Baso # (Auto) 0.01 Sodium 142 Potassium 4.5 D Chloride 107 Carbon Dioxide 25 Anion Gap 10 BUN 9 Creatinine 0.6 L Estimated GFR/1.73 m2 > 60 BUN/Creatinine Ratio 15 Glucose 148 H Calculated Osmolality 285 Calcium 8.1 L Nmd-U-Xizbimsljaw Pept 1752 H Random Vancomycin 11/13/19 09:30 WBC RBC Hgb Hct MCV MCH MCHC RDW Std Deviation Plt Count MPV Immature Gran % (Auto) Neut % (Auto) Lymph % (Auto) Gilliam % (Auto) Eos % (Auto) Baso % (Auto) Immature Gran # (Auto) Neut # (Auto) Lymph # (Auto) Gilliam # (Auto) Eos # (Auto) Baso # (Auto) Sodium Potassium Chloride Carbon Dioxide Anion Gap BUN Creatinine Estimated GFR/1.73 m2 BUN/Creatinine Ratio Glucose Calculated Osmolality Calcium Ync-A-Sjppfnzykso Pept Random Vancomycin 6.50 Assessment: Acute on chronic hypoxemic respiratory failure. Pulmonary edema +/- pneumonia with right pleural effusion. Ruled out pulmonary emboli. Severe COPD with [id number] exacerbation on admission. 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 Pancytopenia. proBNP elevation. Improving today. Plan: Continue supplemental oxygen as needed. We titrated supplemental oxygen to the patients needs per clinical protocols and monitored patients response closely. Continue antibiotics including Cefepime and Vancomycin (Day 4). Continue Duoneb, IV Solu-Medrol. We are adding Mucomyst. Evaluation time in minutes: 32 minutes
[2019-11-13] MEDS: NORCO-7.5 PO PRN (22:32)
[2019-11-13] MEDS: ZOFRAN IV PRN (22:32)
[2019-11-13] MEDS: MUCOMYST 20% INH SCH (23:10)
[2019-11-14] MEDS: MAXIPIME 2 GM/NS 2 GM/100 ML IVPB IV SCH ×2 (01:15→15:30)
[2019-11-14] MEDS: SOLU-MEDROL IV SCH ×5 (01:15→21:53)
[2019-11-14] MEDS: DUONEB (A & A) INH SCH ×4 (04:00→22:25)
[2019-11-14 06:09] LABS: BASO# 0.01 X1000 (0.0-0.2); BASO% 0.3 % (0.0-0.8); HEMATOCRIT 28.1 % (42.0-52.0); HEMOGLOBIN 9.2 g/dL (14.0-18.0); LYMPH% 11.8 % (20.5-51.1); MCH 29.7 PG (27-31); MCHC 32.7 g/dL (33-37); MCV 90.6 FL (81-99); MONO# 0.47 X1000 (0.11-0.59); MONO% 13.9 % (1.7-9.3); MPV 9.8 FL (7.4-10.4); PLT 113 X1000 (130-400); RDW 14.3 % (11.5-14.5); WBC 3.38 X1000 (4.8-10.8)
[2019-11-14 06:44] LABS: AGAP 8; BUN 17 mg/dL (8-22); CHLORIDE 104 mmol/L (98-107); COSMO 282; CREATININE 0.7 mg/dL (0.7-1.2); ESTIMATED GFR > 60; GLUCOSE 146 mg/dL (70-104); POTASSIUM 4.2 mmol/L (3.5-5.1); SODIUM 139 mmol/L (136-145); TCO2 27 mmol/L (25-35)
[2019-11-14] MEDS: LIPITOR PO SCH (08:20)
[2019-11-14] MEDS: MUCOMYST 20% INH SCH ×2 (10:02→22:25)
--- NOTE | 2019-11-14 10:41 | PROGRESS NOTE ---
DATE: 11/14/2019 SUBJECTIVE: Mr. Owens feels better, breathing better. He has really not gotten out of bed and walked so I do want to make sure he is able to ambulate. He wants to go home with home health. OBJECTIVE: Vital signs: He remains afebrile, temperature 97.8 degrees, pulse 100, respirations 18, blood pressure 130/80. HEENT: Pupils are equal and round. Lungs: Clear in all lung brantley. Cardiovascular: Regular rhythm and rate without murmur or S3. Abdomen: Soft. Skin: Warm and dry. URINE OUTPUT: 3000 mL. ASSESSMENT AND PLAN: 1. Acute on chronic hypoxemic respiratory failure, pulmonary edema, pneumonia with right pleural effusion. Ruled out pulmonary emboli. Severe chronic obstructive pulmonary disease, mild to moderate exacerbation on admission, squamous cell cancer of the right lung metastatic to the bone, status post right lobectomy with chemotherapy and radiation therapy prior to admission, had some put pancytopenia. ProBNP was elevated, which is improved. Continue present measures. 2. He presented with sepsis and elevated lactate and so we are treating for bilateral pneumonia. 3. He is on deep venous thrombosis prophylaxis. 4. Getting some protein shakes and encouraging oral intake. His oral intake is improved. 5. Hypertension, controlled. 6. History of diastolic dysfunction, suspect diastolic dysfunction which is why his proBNP has been elevated. REVIEWING HIS ORDERS: He is on Lipitor 40 mg daily, cefepime 2 g IV q.12, vancomycin 1500 mg IV q.24 hours. cc: Jose Martin Galo MD
[2019-11-14] MEDS: COLACE PO SCH ×2 (10:56→20:58)
[2019-11-14] MEDS: MIRALAX PO SCH (10:56)
[2019-11-14] MEDS: VANCOMYCIN 1,500 MG in NS 250 ML IV SCH (12:42)
--- NOTE | 2019-11-14 18:40 | PROVIDER PROGRESS NOTE ---
Progress Note Dr. Davila Progress Note/Pulmonary and or critical care Subjective: The patient is sitting in the bedside chair on VM 40%. He states he is feeling ok. He has occasional dry cough during my encounter. He does have SOB with talking only. at the bedside reports improving cough and she thinks Mucomyst does help. Input was appreciated from Dr. Galo and other teams on the case. Objective: Vital Signs: 97.6 (no fever in last 24 hours), ME 104, RR 22, BP 105/66 and SaO2 91% on VM 40%. Physical Examination: General: No acute distress noted. HEENT: Normocephalic. Trachea midline. Mucosa pink and slightly dry. Chest: SOB with talking. Increased work of breathing, but no accessary muscle using noted. Symmetrical excursion. Diminished breathing sounds bilaterally, worse in the right side with mildly coarse breathing sounds in bilateral upper lung zones. CVS: Mild tachycardia. S1 and S2 appreciated. Abdomen: Soft. Non-distended. Flat. Normoactive bowel sounds noted. Extremities: No edema. No cyanosis. No clubbing. Neuro: A/O x3. Speech fluent. Follow commands. Weakness present. Labs and Radiology: Laboratory Results 11/14/19 11/14/19 05:45 05:45 WBC 3.38 L RBC 3.10 L Hgb 9.2 L Hct 28.1 L MCV 90.6 MCH 29.7 MCHC 32.7 L RDW Std Deviation 14.3 Plt Count 113 L MPV 9.8 Immature Gran % (Auto) 3.0 H Neut % (Auto) 71.0 Lymph % (Auto) 11.8 L Craven % (Auto) 13.9 H Eos % (Auto) 0.0 Baso % (Auto) 0.3 Immature Gran # (Auto) 0.10 H Neut # (Auto) 2.40 Lymph # (Auto) 0.40 L Craven # (Auto) 0.47 Eos # (Auto) 0.00 Baso # (Auto) 0.01 Sodium 139 Potassium 4.2 Chloride 104 Carbon Dioxide 27 Anion Gap 8 BUN 17 D Creatinine 0.7 Estimated GFR/1.73 m2 > 60 BUN/Creatinine Ratio 24 Glucose 146 H Calculated Osmolality 282 Calcium 8.0 L Assessment: Acute on chronic hypoxemic respiratory failure. Pulmonary edema +/- pneumonia vs. pneumonitis with right pleural effusion. Ruled out pulmonary emboli. Severe COPD with [id number] exacerbation on admission. 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 Pancytopenia. proBNP elevation. Plan: Continue supplemental oxygen as needed. We titrated supplemental oxygen to the patients needs per clinical protocols and monitored patients response closely. Continue antibiotics including Cefepime and Vancomycin (Day 5). Continue Duoneb and IV Solu-Medrol. No steroid weaning at this time. Continue Mucomyst. Physical therapy. Evaluation time in minutes: 33 minutes
[2019-11-15] MEDS: NORCO-7.5 PO PRN (00:52)
[2019-11-15] MEDS: MAXIPIME 2 GM/NS 2 GM/100 ML IVPB IV SCH ×2 (01:07→13:24)
[2019-11-15] MEDS: DUONEB (A & A) INH SCH ×4 (03:33→22:21)
[2019-11-15] MEDS: SOLU-MEDROL IV SCH ×3 (06:12→21:15)
--- NOTE | 2019-11-15 07:19 | Diag Imaging Result Doc PS360 ---
EXAM: CHEST-1 VIEW 11/15/2019 HISTORY: SOB TECHNIQUE: AP portable at 0536 COMMENT: The right pleural effusion has diminished slightly since 11/12/2019. There is also improvement in the alveolar opacity in the left lower lobe. IMPRESSION: Improved pulmonary edema and/or pneumonia. Improved right pleural effusion. Electronically signed by Fredy Nicholson 11/15/2019 7:17 AM
[2019-11-15] MEDS: LIPITOR PO SCH (08:50)
[2019-11-15] MEDS: MIRALAX PO SCH (08:50)
[2019-11-15] MEDS: COLACE PO SCH ×2 (08:50→21:15)
[2019-11-15] MEDS: MUCOMYST 20% INH SCH ×2 (12:08→22:21)
[2019-11-15 12:13] LABS: CREATININE 0.7 mg/dL (0.7-1.2)
[2019-11-15] MEDS: VANCOMYCIN 1,500 MG in NS 250 ML IV SCH (13:55)
--- NOTE | 2019-11-15 14:01 | PROGRESS NOTE ---
DATE: 11/15/2019 SUBJECTIVE: Mr. Owens is feeling better and he is anxious to go home but he has not really stood up and walked much and so we are going to see how we do with that today. He remains afebrile. OBJECTIVE: Temperature 97.6 degrees, pulse 94, respirations 20, blood pressure 136/77. Pupils are equal and round. Lungs are clear in all lung brantley. Cardiovascular Examination: Regular rhythm and rate without murmur or S3. Abdomen is soft. Skin is warm and dry. O2 saturation 95%. Urine output is 4200 mL. His chest x-ray from today, improved pulmonary edema, improved right pleural effusion. ASSESSMENT AND PLAN: 1. Acute on chronic hypoxemic respiratory failure, pulmonary edema plus or minus pneumonia versus pneumonitis with right pleural effusion. He has ruled out for pulmonary emboli. He has severe chronic obstructive pulmonary disease in mild to moderate exacerbation on admission. 2. Squamous cell cancer of the right lung, metastatic to the bone, status post right lobectomy. He has received chemotherapy and radiation therapy prior to admission. 3. Pancytopenia, which is improved. 4. ProBNP elevation. Aware. 5. General weakness. Working with physical therapy. He would like to go home. Possibility going home this afternoon. 6. Hypertension, controlled. 7. History of diastolic dysfunction. Suspect diastolic dysfunction which is the reason for his elevated proBNP. REVIEW OF HIS ORDERS: He is on Lipitor 40 mg a day. He is getting DuoNeb 3 mL every 6 hours, hydrocodone 7.5 mg (takes p.r.n. pain), cefepime 2 g IV q.12 hours, methylprednisone 40 mg IV q.6, MiraLAX 17 g a day, vancomycin 1500 mg IV q.18 hours. LABORATORY DATA: Review of his lab from yesterday, hematocrit 28, hemoglobin 9.2, MCV was 90 so this is stable. He has a normocytic anemia. Electrolytes look good. Renal function looks good. cc: Jose Martin Galo MD
--- NOTE | 2019-11-15 17:30 | PROVIDER PROGRESS NOTE ---
Progress Note Dr. Davila Progress Note/Pulmonary and or critical care Subjective: The patient is sitting at the edge of the bed having lunch. He is on NC 6 L. He apparently started walking around the hallway with physical therapy. He states he is feeling better. SOB still noted when patient is talking. is sleeping at the bedside. Input was appreciated from Dr. Galo and other teams on the case. Objective: Vital Signs: 97.6 (no fever in last 24 hours), UT 104, RR 22, BP 105/66 and SaO2 91% on VM 40%. Physical Examination: General: No acute distress noted. HEENT: Normocephalic. Trachea midline. Mucosa pink and slightly dry. Chest: SOB with talking. Increased work of breathing, but no accessary muscle using noted. Symmetrical excursion. Diminished breathing sounds bilaterally, worse in the right side with mildly coarse breathing sounds in bilateral upper lung zones. No wheezing noted. CVS: Mild tachycardia. S1 and S2 appreciated. Abdomen: Soft. Non-distended. Flat. Normoactive bowel sounds noted. Extremities: No edema. No cyanosis. No clubbing. Neuro: A/O x3. Speech fluent. Follow commands. Weakness present. Labs and Radiology: Laboratory Results 11/15/19 11:40 Creatinine 0.7 Random Vancomycin 10.00 Assessment: Acute on chronic hypoxemic respiratory failure. Pulmonary edema +/- pneumonia vs. pneumonitis with right pleural effusion. Ruled out pulmonary emboli. CXR shows improved pulmonary edema +/- pneumonia and improved right pleural effusion. Severe COPD with [id number] exacerbation on admission. 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 Pancytopenia. Plan: Continue supplemental oxygen as needed. We titrated supplemental oxygen to the patients needs per clinical protocols and monitored patients response closely. Continue antibiotics including Cefepime and Vancomycin (Day 5). Continue Duoneb and IV Solu-Medrol. No steroid weaning at this time. Continue Mucomyst. Physical therapy. Evaluation time in minutes: 34 minutes
[2019-11-16] MEDS: MAXIPIME 2 GM/NS 2 GM/100 ML IVPB IV SCH (02:34)
[2019-11-16] MEDS: DUONEB (A & A) INH SCH ×2 (04:05→08:13)
[2019-11-16] MEDS: SOLU-MEDROL IV SCH (05:19)
[2019-11-16] MEDS: NORCO-7.5 PO PRN (05:19)
[2019-11-16 07:07] LABS: BASO# 0.04 X1000 (0.0-0.2); BASO% 0.9 % (0.0-0.8); HEMATOCRIT 31.1 % (42.0-52.0); HEMOGLOBIN 9.8 g/dL (14.0-18.0); IMM GRAN# 0.38 X1000 (0.0-0.04); IMM GRAN% 8.3 % (0.0-0.5); LYMPH# 0.74 X1000 (1.2-3.4); LYMPH% 16.2 % (20.5-51.1); MCH 29.3 PG (27-31); MCHC 31.5 g/dL (33-37); MCV 93.1 FL (81-99); MONO# 0.65 X1000 (0.11-0.59); MONO% 14.2 % (1.7-9.3); MPV 9.9 FL (7.4-10.4); NEUT# 2.77 X1000 (1.4-6.5); NEUT% 60.4 % (42.2-75.2); PLT 115 X1000 (130-400); RBC 3.34 XMIL (4.7-6.1); RDW 16.2 % (11.5-14.5); WBC 4.58 X1000 (4.8-10.8)
[2019-11-16] MEDS: VANCOMYCIN 1,500 MG in NS 250 ML IV SCH (07:23)
[2019-11-16 07:30] LABS: AGAP 9; BUN 18 mg/dL (8-22); CALCIUM 7.8 mg/dL (8.8-10.2); CHLORIDE 104 mmol/L (98-107); COSMO 288; CREATININE 0.7 mg/dL (0.7-1.2); ESTIMATED GFR > 60; GLUCOSE 153 mg/dL (70-104); POTASSIUM 4.5 mmol/L (3.5-5.1); SODIUM 142 mmol/L (136-145); TCO2 29 mmol/L (25-35)
[2019-11-16 07:39] LABS: LYMPHS 16 % (21-51); MONO 13 % (1-9); NRBC 2 % (0-0); SEGS 71 % (42-75)
[2019-11-16 08:05] VITALS: BP 140/85
[2019-11-16] MEDS: MUCOMYST 20% INH SCH (08:13)
[2019-11-16] MEDS: COLACE PO SCH (08:25)
[2019-11-16] MEDS: MIRALAX PO SCH (08:25)
[2019-11-16] MEDS: LIPITOR PO SCH (08:26)
--- NOTE | 2019-11-16 10:28 | DISCHARGE SUMMARY ---
ADMISSION DATE: 11/10/2019 DISCHARGE DATE: 11/16/2019 HISTORY: This is a 79-year-old patient of Dr. Morejon. He had a 2-day history of worsening shortness of breath when he came in on 11/10/2019. This is a 79-year-old white male with past medical history of lung cancer status post right lobectomy, currently undergoing chemotherapy weekly and radiation therapy daily for the last several weeks. He comes in on 11/10/2019 complaining of worsening shortness of breath for the last 2 days, simultaneously worsening cough productive with greenish sputum. Denies any subjective fever, chills. His states that he is just feeling hot. The patient denies any chest pain or any anginal type symptoms. Denies any hemoptysis, leg swelling, or extremity redness or pain. The patient denied any contact with anybody with respiratory illness. Denied any GI or complaints except for constipation. He does admit that his appetite has been diminished, that he has lost weight subjectively. No genitourinary complaints. No focal neurologic complaints. On arrival to the emergency room, he was on 4 L home O2 which she has at home and his O2 saturations were in the low 80s. He was placed on 100% non-rebreather. O2 saturations were just in the low 90s and he says he is feeling a little bit better. ADMISSION DIAGNOSES: 1. Concern about pneumonia and sepsis, bilateral pneumonia with underlying chronic obstructive pulmonary disease and hypoxemic respiratory dysfunction. Began him on antibiotics and bronchodilators and supplemental O2. 2. History of lung cancer. 3. Hypertension. 4. Hyperlipidemia. HOSPITAL COURSE: He had a CT angiogram done on 11/09/2019 with pulmonary edema and possible pneumonia, worsened right pleural effusion. No evidence of pulmonary emboli. Hematology-Oncology were following, Dr. Marcelino, and agreed he felt he had sepsis due to bilateral pneumonia, underlying chronic obstructive pulmonary disease. He has metastatic lung cancer with metastasis to his bones. Currently, he is being treated with carboplatin, Abraxane, Keytruda but the treatment was on hold until breathing was better. We did put him on deep venous thrombosis prophylaxis with SCDs. He had a chest x-ray on presentation with some pulmonary edema, questionable bilateral pneumonia. Echocardiogram was done on 11/11/2019 with normal left ventricular size and ejection fraction was 65%. No valvular dysfunction. No pericardial issues. Chest x-ray repeated on 11/12/2019, essentially stable chest. Pulmonary was consulted and Dr. Davila felt he had acute on chronic hypoxemic respiratory failure which is improving. He has been on a non-rebreather for a couple days and we were able to wean him down to nasal cannula. Pulmonary edema +/- pneumonia, right pleural effusion. No sign of pulmonary emboli. Severe COPD with mid to moderate exacerbation on admission. Squamous cell cancer of the right lung, metastatic to the bone, status post right lobectomy, ongoing chemotherapy and radiation, which is on hold and he had some pancytopenia appreciated, which was mild. He had an elevated proBNP, but his echo showed normal left ventricular function. Hematology Oncology felt he was improving but continued his antibiotics and we did get some physical therapy to get him out of bed. They did want to go home. Follow up x-ray on the with improved pulmonary edema and he was on his nasal cannula on 4 L and was anxious to go home. Plan to take his Portillo catheter out and let him go home and see if we can arrange for some home health to help. DISCHARGE MEDICATIONS: He will be on Lipitor 40 mg a day, Colace 100 mg b.i.d., MiraLAX 17 g daily, Lipitor 40 mg a day, Plavix 75 mg a day, Toprol-XL 25 mg a day. INSTRUCTIONS: He will follow up with Dr. Marcelino and his primary care. Continue his O2 per nasal cannula. cc: Jose Martin Galo MD
== END 2019-11-16 10:40 | disposition home health service (06) | DRG 871 ==
LOC: ED 22:28 → SUATTDRO 11-10 03:13 → 2N 11-10 03:13
PROVIDERS: ATTEND Emergency Medicine